=== PATIENT | female | born 1970 | race Two or more races ===

== ENCOUNTER 2021-05-13 00:31 | Emergency (ER) | payer MEDICAID, OTHER ==
[~2021-05-13] VITALS: Ht 165.1 cm; Wt 68.0 kg
[2021-05-13] MEDS ORDERED: MORPHINE SULFATE 4 MG/ML SYR/VIAL IM ONE (00:45)
[2021-05-13] MEDS ORDERED: MORPHINE SULFATE 4 MG/ML SYR/VIAL IV ONE (01:00)
[2021-05-13] MEDS ORDERED: LIDOCAINE 1% HCL (LOCAL ANESTH.) INJ 20ML MDV IJ ONE (01:00)
[2021-05-13] MEDS ORDERED: fentaNYL CITRATE 100 MCG/2 ML VL IV ONE (01:30)
[2021-05-13] MEDS ORDERED: HYDR-4902 PO (02:24)
[2021-05-13 02:37] VITALS: BP 133/67
== END 2021-05-13 03:05 | disposition home or self-care (01) ==
LOC: EDBD 00:31 → ER 00:34
DX: S42.92XA Fracture of left shoulder girdle, part unspecified, initial encounter for closed fracture (principal); S43.005A Unspecified dislocation of left shoulder joint, initial encounter; E11.9 Type 2 diabetes mellitus without complications; W18.39XA Other fall on same level, initial encounter; Y93.89 Activity, other specified; Y92.89 Other specified places as the place of occurrence of the external cause; Y99.8 Other external cause status
CPT/HCPCS: 23650; 73020; 73030; 96374; 96375; 99284; J2001; J2270; J3010